=== PATIENT | male | born 1955 | race Caucasian/White ===

== ENCOUNTER 2018-04-08 12:29 | Outpatient (CLI) | payer MEDICARE, SELFPAY ==
[2018-04-08 13:08] LABS: Hemoglobin A1C 8.2 % (4.5-6.2)
== END 2018-04-08 12:49 ==
PROVIDERS: PCP Family Medicine; Visit Provider Family Medicine
DX: E11.65 Type 2 diabetes mellitus with hyperglycemia (principal)
CPT/HCPCS: 36415; 83036

== ENCOUNTER 2018-07-04 13:22 | Outpatient (CLI) | payer MEDICARE, SELFPAY ==
[2018-07-04 14:14] LABS: Hemoglobin A1C 8.1 % (4.5-6.2)
[2018-07-04 14:31] LABS: Anion Gap 6.4 mmol/L (3-11); BUN 25 mg/dL (7-18); CO2 31.6 mmol/L (21.0-32.0); CREATININE 1.46 mg/dL (0.70-1.30); Calcium 8.9 mg/dL (8.5-10.1); Chloride 100 mmol/L (98-107); Estimated GFR 48.61 (mL/min/1.73m2); Glucose 177 mg/dL (70-100); Potassium 4.8 mmol/L (3.5-5.1); Sodium 138 mmol/L (136-145)
== END 2018-07-04 13:42 ==
PROVIDERS: PCP Family Medicine; Visit Provider Family Medicine
DX: E11.9 Type 2 diabetes mellitus without complications (principal); I10 Essential (primary) hypertension
CPT/HCPCS: 36415; 80048; 83036

== ENCOUNTER 2018-11-05 01:39 | Outpatient (CLI) | payer MEDICARE, SELFPAY ==
--- NOTE | 2018-11-05 09:15 | DIABASSESS_ITS ---
DESCRIPTION/ASSESSMENT: Rubin Miller presents for diabetes self management seen in the distant past. Rubin started U500 in July. He is taking 0-200 units AM and PM. He states he does not have an insulin dosing scale anymore, but guesses at how much he needs based on his blood sugar. In the morning he does not take insulin if blood sugar is below 200mg/dl. By supper blood sugars are generally 220-330s. He does have some high fasting blood sugars up to 327mg/dl this morning after 125u insulin at last evening. Rubin eats one meal a day. Last night he had cereal, toast, doritos and a candy bar. He pays no attention to carbohydrate in foods and eats what he wants. ASSESSMENT: Rubin seeks a guide for dosing U500. Since I was not involved in his insulin transition, I defer this patient back to Rosalio Rodriguez for further support. It does appear he is taking more insulin on the U500 without improved results. Rubin feels he has less control because he cannot correct hyperglycemia directly. I did explain the action of the medication and that it is not intended to correct hyperglycemia directly. In addition, discussed physiological need for insulin even if his blood sugar is at goal in the morning. PLAN: Rubin would like a copy of his old insulin dosing guide and this will be sent to him even though he is not taking mealtime insulin. Encouraged him to return to his provider for further assistance. Individual DSME/T __0__ units billed TIME IN: 919 OUT: 939 No DM group education series being offered at this time.
== END 2018-11-05 01:59 ==
PROVIDERS: PCP Family Medicine; Visit Provider Dietitian, Registered
DX: E11.9 Type 2 diabetes mellitus without complications (principal); Z79.4 Long term (current) use of insulin; Z71.3 Dietary counseling and surveillance

== ENCOUNTER 2018-12-06 02:35 | Outpatient (CLI) | payer MEDICARE, SELFPAY ==
--- NOTE | 2018-12-06 13:23 | DI.MRI_ITS ---
SYMPTOMS/DIAGNOSIS: L5 RADICULOPATHY ON LEFT WITH MOTOR DYSFUNCTION, M54.17 LUMBOSACRAL SPINE MRI: MRI examination of the lumbosacral spine was performed according to the usual protocol. No significant bony signal abnormality seen. The conus medullaris appears intact. There is moderate disc bulge at the T11-T12 level without evidence of impingement. No significant findings at T12-L1. No significant findings at L1-2 or L2-3. At L3-4, there is a moderate disc bulge and there is a superimposed left paracentral disc herniation, which projects inferiorly from the disc level with presumed impingement on the exiting L4 nerve root at this level. There is mild central canal spinal stenosis at the L3-4 level as well. At L4-5, there is a prominent disc bulge and there is an inferiorly projected left-sided disc herniation, which may have a component of extruded disc fragment. Note is also made of very prominent hypertrophic change of the articular facet on the left at this level causing deformity of the spinal canal on the left. This results in moderate central canal spinal stenosis. Left neural foramen also narrowed at L4-5. Mild disc bulge noted at L5-S1. No other significant findings at this level. CONCLUSION: 1. Left-sided disc herniation projected inferiorly left paracentral at L3-4 with presumed neural impingement, mild central canal spinal stenosis. 2. Moderate-sized left disc herniation at L4-5, moderate central canal spinal stenosis secondary to disc bulge, herniated disc and deformity of articular facet on the left. These findings were not present on previous lumbar spine MRI of 10/29/2008.
--- NOTE | 2018-12-06 14:29 | DI.RAD_ITS ---
SYMPTOMS/DIAGNOSIS: ACUTE LOW BACK PAIN WITH RADICULOPATHY, DORSALGIA-M54.9 LUMBOSACRAL SPINE: Five views were obtained. There is disc space narrowing at L4-5. Otherwise, intervertebral disc spaces are fairly well maintained except for slight narrowing at L3-4. There are prominent hypertrophic endplate changes, particularly anteriorly at L1-2, L2-3 and L3-4. There are moderate facet hypertrophic changes of the lower lumbar spine. No evidence of spondylolysis or spondylolisthesis. No fracture seen. No erosive or destructive lesions seen. CONCLUSION: Degenerative changes as described above with evidence of disc degeneration at L4-5 and L3-4.
== END 2018-12-06 02:55 ==
PROVIDERS: PCP Family Medicine; Visit Provider Family Medicine
DX: M54.17 Radiculopathy, lumbosacral region (principal); M51.36 Other intervertebral disc degeneration, lumbar region; M51.26 Other intervertebral disc displacement, lumbar region
CPT/HCPCS: 72110; 72148

== ENCOUNTER 2019-01-17 07:00 | Outpatient (CLI) | payer MEDICARE, SELFPAY ==
[2019-01-17 12:52] LABS: Abs Immature Grans 0.06 k/cumm (0.0-0.09); Absolute Basophil Count 0.01 k/cumm (0.0-0.2); Absolute Eosinophil Count 0.21 k/cumm (0.0-0.7); Absolute Lymphocyte Count 1.74 k/cumm (1.2-3.4); Absolute Monocyte Count 0.88 k/cumm (0.11-0.7); Absolute Neutrophil Count 6.02 k/cumm (1.2-6.7); Basophils % 0.1; Eosinophils % 2.4; HCT 40.1 % (40.0-50.0); HGB 13.2 g/dL (13.5-17.5); Immature Grans % 0.7; Lymphocytes % 19.5; Mean Corp. HGB Concentration 32.9 g/dL (32.0-36.0); Mean Corpuscular Hemoglobin 29.7 pg (27.0-33.0); Mean Corpuscular Volume 90.1 fL (80-95); Mean Platelet Volume 9.4 fL (8.0-11.0); Monocytes % 9.9; Neutrophils % 67.4; Platelet Count 184 x1000/uL (130-400); RBC 4.45 m/cumm (4.50-6.00); RBC Distribution Width 14.2 % (11.8-14.1); White Blood Cell Count 8.92 k/cumm (4.4-10.8)
[2019-01-17 13:03] LABS: Hemoglobin A1C 8.1 % (4.5-6.2)
[2019-01-17 13:07] LABS: ALT 26 U/L (16-63); AST 15 U/L (15-37); Albumin 3.9 g/dL (3.4-5.0); Alkaline Phosphatase 99 U/L (46-116); Anion Gap 10.5 mmol/L (3-11); BUN 32 mg/dL (7-18); Bilirubin, Total 0.4 mg/dL (0.2-1.0); CO2 27.5 mmol/L (21.0-32.0); CREATININE 1.48 mg/dL (0.70-1.30); Calcium 9.1 mg/dL (8.5-10.1); Chloride 100 mmol/L (98-107); Glucose 248 mg/dL (70-100); Potassium 5.2 mmol/L (3.5-5.1); Sodium 138 mmol/L (136-145); Total Protein 7.2 g/dL (6.4-8.2)
== END 2019-01-17 07:20 ==
PROVIDERS: PCP Family Medicine; Visit Provider Family Medicine
DX: E11.65 Type 2 diabetes mellitus with hyperglycemia (principal)
CPT/HCPCS: 36415; 80053; 83036; 85025

== ENCOUNTER 2020-03-26 03:14 | Outpatient (CLI) | payer MEDICARE, SELFPAY ==
[2020-03-26 11:27] LABS: HCT 37.7 % (40.0-50.0); HGB 12.7 g/dL (13.5-17.5); MCH 30.3 pg (27.0-33.0); MCHC 33.7 % (32.0-36.0); Platelet Count 157 10^3/uL (130-400); RBC 4.19 10^6/uL (4.36-5.78); RDW 13.2 % (11.8-14.1); RDW-SD 42.9 fL; WBC 8.06 10^3/uL (4.4-10.8)
[2020-03-26 11:30] LABS: Hemoglobin A1C 10.1 % (<5.7)
[2020-03-26 11:44] LABS: Microalb ug/mg Crea 27.1 ug/mg Cr
[2020-03-26 12:00] LABS: ALT 27 U/L (16-63); AST 18 U/L (15-37); Albumin 3.6 g/dL (3.4-5.0); Alkaline Phosphatase 84 U/L (46-116); Anion Gap 2.9 mmol/L (3-11); BUN 24 mg/dL (7-18); Bilirubin, Total 0.6 mg/dL (0.2-1.0); CO2 30.1 mmol/L (21.0-32.0); CREATININE 1.44 mg/dL (0.70-1.30); Calcium 8.2 mg/dL (8.5-10.1); Chloride 102 mmol/L (98-107); Cholesterol 179 mg/dL (<200); Estimated GFR 49.08 (mL/min/1.73m2); Glucose 192 mg/dL (74-106); HDL Cholesterol 34 mg/dL (40-60); Potassium 4.5 mmol/L (3.5-5.1); Sodium 135 mmol/L (136-145); TSH 3.55 uIU/mL (0.36-3.74); Total Protein 6.6 g/dL (6.4-8.2); Triglyceride 438 mg/dL (<150)
[2020-03-26 12:12] LABS: LDL CHOLESTEROL 67 mg/dL (<100)
== END 2020-03-26 03:34 ==
PROVIDERS: PCP Family Medicine; Visit Provider Family Medicine
DX: E11.65 Type 2 diabetes mellitus with hyperglycemia (principal); E78.5 Hyperlipidemia, unspecified; E03.9 Hypothyroidism, unspecified; F32.9 Major depressive disorder, single episode, unspecified; N28.9 Disorder of kidney and ureter, unspecified
CPT/HCPCS: 36415; 80053; 80061; 83721; 85027; 82043; 82570; 83036; 84443

== ENCOUNTER 2020-09-07 03:58 | Outpatient (CLI) | payer MEDICARE, SELFPAY ==
--- NOTE | 2020-09-07 10:30 | NS.NUTBLAN_ITS ---
ASSESSMENT: Rubin (64 M) presents with referral for DM w/ hx hyperglycemia. He is 175lbs w/ BMI 30. He has hx of eating one meal a day at supper and high CHO snack. Documentation reveals non prolific retinopathy, some foot neuropathy and A1c 10% ( 08/31/20). Random finger stick at this encounter using this RD's glucometer revealed 387 mg/dl. He reports taking 30 units detemir and 60 units novolog at the same time immediately after supper each night. He takes 25mg Jardiance daily. He reports his meal last night consisted of three hot dogs with ketchup and diet soda. He stated that he drinks ~ 2 liters diet soda daily. He does not drink ETOH. Stated that he uses finger stick occasionally and and arrived at this encounter with his glucometer which may need replacement or calibration. It gave a reading of 370 mg/dl at this encounter. Rubin stated that his main concern today is elevated BG levels. He mentioned that he has had some lows in the past and was able to use 1 Tbsp maple syrup to help offset the lows. He recalled the lowest to be 34 mg/dl. Noted: documentation showed an order for U- 500 syringes in the past. The levemir regimen is new and was ordered as 10-50 units which Rubin has been experimenting with as he has hx of fear of hypoglycemia. As noted above he has been using 30units after supper with the 60 units Novolog. He is not getting good results as evidenced by fingersticks at this encounter. NUTRITION DIAGNOSIS: Limited adherence to nutrition related recommendations r/t poor diet choices and lack of DM edu, AEB: A1c 10% and BG 387mg/dl ( /20). INTERVENTION: Spoke with PharmD Mehul Rodriguez who is familiar with this patient. We agreed that per MD approval, the best route for him is a u-500 insulin as a basal dose along with preprandial Novolog. There may be some insurance issues with the stronger insulin ( Trujeo is another option) which Mehul will investigate. For the moment the recommendation is 25 units detemir am and 25 units detemir HS at bedtime. 15 -20 units Novolog 15 minutes pre prandial at breakfast and lunch with 20 units at supper. The issue is that Rubin must eat in order to benefit from this regimen and to avoid hypoglycemic episodes. Spoke with Rubin again today to stress the importance of eating 3x/day and advised that he continue on his current routine until MD can be consulted. Reviewed long-term complications of elevated BG levels. Reviewed desired ranges of BG levels. Explained potential for temporary or sporadic relative hypoglycemia r/t lowering BG levels if he starts a new insulin tx per MD approval. Arranged for [employer]ANIN fresh produce for [address] [facility] program. He was contacted by them today. Reviewed concept of pairing CHO's with pro and incorporating fiber into diet through increased vegetable intake. Provided literature to help with food choices and CHO intake. MONITOR/EVAL: Pharm D will contact Rubin to reiterate potential for adjusting insulin regimen to help lower BG levels. Rubin will participate in [employer] program to help with nutritional needs and food choice/options.Rubin will return to this RD for outpatient edu in CHO counting, diet, and further support in 30 days. Rubin will maintain good foot health using techniques as discussed at this encounter. This RD will contact MD with insulin recommendations.
== END 2020-09-07 03:59 | disposition home or self-care (01) ==
PROVIDERS: PCP Family Medicine; Visit Provider Dietitian, Registered
DX: E11.65 Type 2 diabetes mellitus with hyperglycemia (principal); Z79.4 Long term (current) use of insulin; Z68.30 Body mass index [BMI] 30.0-30.9, adult; Z71.3 Dietary counseling and surveillance
CPT/HCPCS: 97802

== ENCOUNTER 2021-01-26 14:34 | Outpatient (REF) | payer MEDICARE, SELFPAY ==
[2021-01-28 12:04] LABS: COVID-19 RT-PCR UVMMC Result Negative (Negative)
== END 2021-01-26 14:35 | disposition home or self-care (01) ==
LOC: LBN 14:34
PROVIDERS: Family Medicine; PCP Family Medicine; Visit Provider Family Medicine
DX: Z20.822 Contact with and (suspected) exposure to COVID-19 (principal)
CPT/HCPCS: U0003; U0005

== ENCOUNTER 2021-03-16 04:00 | Outpatient (CLI) | payer MEDICARE, SELFPAY ==
[2021-03-16 12:49] LABS: CREATININE 1.5 mg/dL (0.70-1.30); Cholesterol 224 mg/dL (<200); Estimated GFR 46.68 (mL/min/1.73m2); HDL Cholesterol 36 mg/dL (40-60); Potassium 5.1 mmol/L (3.5-5.1); Triglyceride 693 mg/dL (<150)
[2021-03-16 13:10] LABS: LDL CHOLESTEROL 59 mg/dL (<100)
== END 2021-03-16 04:01 | disposition home or self-care (01) ==
LOC: LBO 04:01
PROVIDERS: PCP Family Medicine; Visit Provider Family Medicine
DX: I10 Essential (primary) hypertension (principal); E78.5 Hyperlipidemia, unspecified; R73.9 Hyperglycemia, unspecified
CPT/HCPCS: 36415; 80061; 83721; 82565; 83036; 84132

== ENCOUNTER 2022-03-15 11:45 | Outpatient (CLI) | payer MEDICARE, SELFPAY ==
[2022-03-15 12:42] LABS: Anion Gap 6.3 mmol/L (3-11); BUN 25 mg/dL (7-18); CO2 27.7 mmol/L (21.0-32.0); CREATININE 1.4 mg/dL (0.70-1.30); Chloride 97 mmol/L (98-107); Cholesterol 173 mg/dL (<200); Estimated GFR 54.75 (mL/min/1.73m2); Glucose 323 mg/dL (74-106); HDL Cholesterol 40 mg/dL (40-60); Potassium 4.3 mmol/L (3.5-5.1); Sodium 131 mmol/L (136-145); Triglyceride 483 mg/dL (<150)
[2022-03-15 12:57] LABS: LDL CHOLESTEROL 52 mg/dL (<100)
== END 2022-03-15 11:46 | disposition home or self-care (01) ==
PROVIDERS: PCP Family Medicine; Visit Provider Family Medicine
DX: E78.5 Hyperlipidemia, unspecified (principal); E87.1 Hypo-osmolality and hyponatremia
CPT/HCPCS: 36415; 80048; 80061; 83721

== ENCOUNTER 2022-03-15 19:13 | Outpatient (REF) | payer MEDICARE, SELFPAY ==
[2022-03-15 13:21] LABS: COMMENT (LAB VIEW ONLY) 33.68 mg/dL; Microalb ug/mg Crea 16.3 ug/mg Cr
== END 2022-03-15 19:14 | disposition home or self-care (01) ==
LOC: LBN 19:13
PROVIDERS: PCP Family Medicine; Visit Provider Family Medicine
DX: E11.9 Type 2 diabetes mellitus without complications (principal)
CPT/HCPCS: 82043; 82570

== ENCOUNTER 2023-03-28 10:51 | Outpatient (CLI) | payer MEDICARE, SELFPAY ==
[2023-03-28 12:34] LABS: CREATININE 1.3 mg/dL (0.70-1.30); Calculated LDL 91 mg/dL (<100); Cholesterol 172 mg/dL (<200); Estimated GFR 59.47 (mL/min/1.73m2); HDL Cholesterol 49 mg/dL (40-60); Potassium 4.3 mmol/L (3.5-5.1); Triglyceride 163 mg/dL (<150)
== END 2023-03-28 10:52 | disposition home or self-care (01) ==
LOC: LOS 10:52
PROVIDERS: PCP Family Medicine; Referring Provider Family Medicine; Visit Provider Family Medicine
DX: I10 Essential (primary) hypertension (principal); E78.5 Hyperlipidemia, unspecified
CPT/HCPCS: 36415; 80061; 82565; 84132

== ENCOUNTER 2023-03-28 13:12 | Outpatient (REF) | payer MEDICARE, SELFPAY ==
[2023-03-28 17:33] LABS: COMMENT (LAB VIEW ONLY) 41.41 mg/dL; Microalb ug/mg Crea 28.5 ug/mg Cr
== END 2023-03-28 13:13 | disposition home or self-care (01) ==
LOC: LBN 13:12
PROVIDERS: PCP Family Medicine; Visit Provider Family Medicine
DX: E11.9 Type 2 diabetes mellitus without complications (principal)
CPT/HCPCS: 82043; 82570

== ENCOUNTER 2023-10-03 11:27 | Outpatient (CLI) | payer MEDICARE, SELFPAY | END 2023-10-03 11:28 | disposition home or self-care (01) | LOC: LOS 11:28 | PROVIDERS: PCP Family Medicine; Referring Provider Family Medicine; Visit Provider Family Medicine | DX: E03.9 Hypothyroidism, unspecified (principal) | CPT/HCPCS: 36415; 84443 ==

== ENCOUNTER 2024-05-27 10:06 | Outpatient (CLI) | payer MEDICARE, SELFPAY ==
[2024-05-27 12:23] LABS: Abs Immature Grans 0.04 10^3/uL (0.0-0.06); Absolute Basophil Count 0.01 10^3/uL (0.0-0.2); Absolute Eosinophil Count 0.18 10^3/uL (0.0-0.7); Absolute Lymphocyte Count 1.85 10^3/uL (1.2-3.4); Absolute Monocyte Count 0.72 10^3/uL (0.1-0.8); Absolute Neutrophil Count 5.33 10^3/uL (1.2-6.7); Basophils % 0.1 %; Eosinophils % 2.2 %; HCT 37.9 % (40.0-50.0); Immature Grans % 0.5 %; Lymphocytes % 22.8 %; MCHC 34.3 % (32.0-36.0); MCV 87 fL (80-95); MPV 9.9 fL (8.0-11.0); Monocytes % 8.9 %; Neutrophils % 65.5 %; Platelet Count 165 10^3/uL (130-400); RBC 4.34 10^6/uL (4.36-5.78); RDW 12.7 % (11.8-14.1); RDW-SD 40.6 fL; WBC 8.13 10^3/uL (4.4-10.8)
[2024-05-27 12:36] LABS: Anion Gap 6.8 mmol/L (3-11); BUN 24 mg/dL (7-18); CO2 28.2 mmol/L (21.0-32.0); CREATININE 1.3 mg/dL (0.70-1.30); Calcium 9.5 mg/dL (8.5-10.1); Chloride 103 mmol/L (98-107); Glucose 241 mg/dL (74-106); Potassium 4.5 mmol/L (3.5-5.1); Sodium 138 mmol/L (136-145)
[2024-05-27 12:57] LABS: Hemoglobin A1C 7.7 % (<5.7)
== END 2024-05-27 10:07 | disposition home or self-care (01) ==
LOC: LOS 10:07
PROVIDERS: PCP Family Medicine; Visit Provider Family Medicine
DX: R73.9 Hyperglycemia, unspecified (principal); E87.1 Hypo-osmolality and hyponatremia; D64.9 Anemia, unspecified
CPT/HCPCS: 36415; 80048; 83036; 85025

== ENCOUNTER 2024-12-25 13:21 | Outpatient (RCR) | payer MEDICARE, SELFPAY | END 2024-12-28 23:59 | disposition home or self-care (01) | LOC: CARDOPNVT 13:21 | PROVIDERS: PCP Family Medicine; Visit Provider Internal Medicine Cardiovascular Disease | DX: R00.2 Palpitations (principal) | CPT/HCPCS: 93225 ==

== ENCOUNTER 2024-12-29 13:00 | Outpatient (RCR) | payer MEDICARE, SELFPAY ==
--- NOTE | 2025-01-01 14:47 | W.HOLTRPT ---
Date of service: 01/01/25 Time of Service: 14:48 Holter Monitor Report Referring Provider:: Wily Su Indications:: Palpitations Holter Monitor Note: This is a 48-hour Holter monitor. Rhythm throughout was sinus with an average heart rate of 69. Minimum was 53, maximum 108 There were very rare isolated atrial and ventricular ectopic beats. There was no atrial fibrillation, no high-grade AV block, no pauses greater than 3 seconds. No symptoms were reported
== END 2025-01-27 23:59 | disposition home or self-care (01) ==
LOC: CARDOPNVT 13:00
PROVIDERS: PCP Family Medicine; Visit Provider Internal Medicine Cardiovascular Disease
DX: R00.2 Palpitations (principal)
CPT/HCPCS: 93227; 93226

== ENCOUNTER 2025-01-21 04:07 | Outpatient (CLI) | payer MEDICARE, SELFPAY ==
[2025-01-21 16:00] LABS: Abs Immature Grans 0.04 10^3/uL (0.0-0.06); HCT 38.4 % (40.0-50.0); HGB 13.0 g/dL (13.5-17.5); Immature Grans % 0.5 %; MCH 30.0 pg (27.0-33.0); MCHC 33.9 % (32.0-36.0); MCV 89 fL (80-95); MPV 9.6 fL (8.0-11.0); Platelet Count 160 10^3/uL (130-400); RBC 4.33 10^6/uL (4.36-5.78); RDW 13.2 % (11.8-14.1); RDW-SD 42.9 fL; WBC 8.58 10^3/uL (4.4-10.8)
[2025-01-21 16:35] LABS: Anion Gap 7.7 mmol/L (3-11); BUN 27 mg/dL (7-18); CO2 27.3 mmol/L (21.0-32.0); Calcium 9.6 mg/dL (8.5-10.1); Chloride 98 mmol/L (98-107); Estimated GFR 58.73 (mL/min/1.73m2); Glucose 219 mg/dL (74-106); Potassium 4.2 mmol/L (3.5-5.1); Sodium 133 mmol/L (136-145); TSH (W/Ref FT4) 1.48 uIU/mL (0.36-3.74)
== END 2025-01-21 04:08 | disposition home or self-care (01) ==
LOC: LOS 04:08
PROVIDERS: PCP Family Medicine; Visit Provider Family Medicine
DX: E03.9 Hypothyroidism, unspecified (principal); E87.1 Hypo-osmolality and hyponatremia; D64.9 Anemia, unspecified
CPT/HCPCS: 36415; 80048; 84443; 85025